=== PATIENT | male | born 1970 | race Caucasian/White ===

== ENCOUNTER 2016-10-29 11:04 | Day surgery (SDC) | payer MEDICAID ==
[~2016-10-29 11:04] MED LIST: Lactated Ringers 1,000 ML IV SCH; Lidocaine 1%/Sod Bicarbonate in NS 8.4% 1 ML Syringe IV PRN; Sodium Chloride 0.9% 10 ML Syringe FLUSH PRN
--- NOTE | 2016-10-29 11:40 | PCM.PREANE ---
Preanesthetic Assessment - Anesthesia/Transfusion/Family Hx Anesthesia History: Prior Anesthesia Without Reaction Family History of Anesthesia Reaction: No Transfusion History: No Prior Transfusion(s) - Review of Systems General: Fever, Weakness, Fatigue, Chills, Night Sweats (going on for 4 years) Pulmonary: Shortness of Breath, Wheezing Cardiovascular: Chest Pain (some days dull and some days sharp pain) Gastrointestinal: Abdominal pain, Decreased appetite, Diarrhea, Hematochezia, Nausea, Vomiting Neurological: Headache Other: Reports: Depression, Anxiety - Physical Assessment NPO Status Date: 10/28/16 NPO Status Time: 21:30 Pulse: 78 O2 Sat by Pulse Oximetry: 98 Respiratory Rate: 20 Blood Pressure: 129/87 Temperature: 98.3 F Height: 5 ft 10 in Weight: 143 kg ASA Class: 3 Mental Status: Alert & Oriented x3 Airway Class: Mallampati = 1 Dentition: Reports: Missing Tooth/Teeth (bottom left tooth very loose) Thyro-Mental Finger Breadths: 3 Mouth Opening Finger Breadths: 3 Lungs: Clear to auscultation Cardiovascular: Regular Rate, Regular Rhythm, No Murmurs - Lab Values: 07/09/16 lytes WNL bun 13 Cr 0.90 hgb 16.7 plt 239 - Imaging/EKG Impressions: Jul 09, 2016 EKG SR rate 72 - Allergies Allergies/Adverse Reactions: Allergies Allergy/AdvReac Type Severity Reaction Status Date / Time No Known Allergies Allergy Verified 10/28/16 17:30 - Blood Blood Available: No - Acknowledgements Anesthesia Type Planned: MAC Pt an Appropriate Candidate for the Planned Anesthesia: Yes Alternatives and Risks of Anesthesia Discussed w Pt/Guardian: Yes Pt/Guardian Understands and Agrees with Anesthesia Plan: Yes PreAnesthesia Questionnaire Cardiovascular History: Reports: None, SOB on exertion Respiratory History: Reports: Asthma, COPD, Other (see below) Other Respiratory History: emphysema, pulmonary nodule Gastrointestinal History: Reports: Hemorrhoids, Other (see below) Other Gastrointestinal History: rectal bleeding, hematochezia, abdominal pain, nausea and vomiting, reflux, tubluar adenoma, anal stenosis, anal fissure, benign neuroendocrine tumor of small intestine, colon polpys Genitourinary History: Reports: None DRAG SAWYER History: Reports: None Musculoskeletal History: Reports: Other (see below) Other Musculoskeletal History: joint pain Neurological History: Reports: None, Headaches, chronic Psychiatric History: Reports: Anxiety, Bipolar Endocrine/Metabolic History: Reports: None Hematologic History: Reports: None Immunologic History: Reports: None Oncologic (Cancer) History: Reports: None Dermatologic History: Reports: None - Past Surgical History Head Surgeries/Procedures: Reports: None HEENT Surgical History: Reports: Oral surgery GI Surgical History: Reports: Colonoscopy, EGD, Hernia, inguinal, Other (see below) Other GI Surgeries/Procedures: colon resection and double balloon endscopy - SUBSTANCE USE Smoking Status *Q: Current Every Day Smoker (3 cigs every 3 days- smoked for 37 years) Tobacco Use Within Last Twelve Months: Cigarettes Second Hand Smoke Exposure: Yes Days Per Week of Alcohol Use: 0 Recreational Drug Use History: No - HOME MEDS Home Medications: Home Meds Albuterol Sulfate [Proair Hfa] 1 puff INH Q4HR PRN 10/28/16 [History] Amitriptyline [Elavil] 25 mg PO BID 10/28/16 [History] Baclofen 10 mg PO TID 10/28/16 [History] Budesonide/Formoterol [Symbicort 160-4.5 MCG] 2 puff INH BID 10/28/16 [History] Cyclobenzaprine [Flexeril] 10 mg PO TID PRN 10/28/16 [History] Dicyclomine [Bentyl] 20 mg PO QID 10/28/16 [History] Dronabinol [Dronabinol] 2.5 mg PO BID 10/28/16 [History] HYDROmorphone [Dilaudid] 2 mg PO Q4H PRN 10/28/16 [History] Ondansetron HCl [Zofran] 8 mg PO Q8H PRN 10/28/16 [History] Pregabalin [Lyrica] 75 mg PO BID 10/28/16 [History] Tiotropium [Spiriva Handihaler] 1 puff INH DAILY 10/28/16 [History] buPROPion [Wellbutrin SR] 150 mg PO BID 10/28/16 [History] busPIRone [Buspar] 10 mg PO TID 10/28/16 [History] carBAMazepine [Tegretol] 600 mg PO BEDTIME 10/28/16 [History] hydrOXYzine Pamoate [Hydroxyzine Pamoate] 25 mg PO BEDTIME 10/28/16 [History] hydrOXYzine Pamoate [Hydroxyzine Pamoate] 50 mg PO BEDTIME 10/28/16 [History] - CURRENT (IN HOUSE) MEDS Current Meds: Current Medications Lactated Ringer's (Ringers, Lactated) 1,000 mls @ 125 mls/hr IV ASDIRECTED ILAN Stop: 10/29/16 23:00 Lidocaine/Sodium Bicarbonate (Buffered Lidocaine 1% In Ns 8.4%) 0.25 ml IV ONETIME PRN PRN Reason: Prior to IV Start Stop: 10/29/16 18:00 Sodium Chloride (Saline Flush) 10 ml FLUSH ASDIRECTED PRN PRN Reason: Keep Vein Open Stop: 10/29/16 18:00
[2016-10-29] MEDS ORDERED: Propofol 200 MG/20 ML SDV ONE ×3 (12:12→13:10)
[2016-10-29] MEDS ORDERED: fentaNYL 100 MCG/2 ML SDV ONE (12:13)
[2016-10-29] MEDS ORDERED: Lidocaine 1% 4 ML ONE (12:13)
[2016-10-29 13:22] VITALS: BP 105/74
--- NOTE | 2016-10-29 13:22 | PCM48HPAN ---
Post Anesthesia Note - EVALUATION WITHIN 48HRS OF ANESTHETIC Vital Signs in Normal Range: Yes Patient Participated in Evaluation: Yes Respiratory Function Stable: Yes Airway Patent: Yes Cardiovascular Function Stable: Yes Hydration Status Stable: Yes Pain Control Satisfactory: Yes Nausea and Vomiting Control Satisfactory: Yes Mental Status Recovered: Yes
--- NOTE | 2016-10-29 13:26 | PCM.OPNOTE ---
- General Post-Op/Procedure Note Date of Surgery/Procedure: 10/29/16 Operative Procedure(s): Diagnostic EGD with cold forceps biopsy. Diagnostic colonoscopy with cold forceps biopsy. Hemorrhoidal banding Pre Op Diagnosis: Constipation intermittent diarrhea, history of carcinoid small bowel tumor, chronic abdominal pain Post-Op Diagnosis: Colitis of uncertain etiology, worst in the rectum, poor prep , mild gastritis and duodenitis, mild esophagitis, arytenoid nodule, grade 2 internal hemorrhoids Anesthesia Technique: MAC Primary Surgeon: Toyin Kwon Anesthesia Provider: Vicente Phillips Pathology: 1. Small bowel biopsy 2. Antral biopsy 3. Distal esophageal biopsy 4. Random colon biopsies from the descending colon to the rectum EBL in mLs: 1 Complications: None Condition: Good Free Text/Narrative:: FLUIDS: 850 mL crystalloid. 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 Kleber Hassan for evaluation for internal hemorrhoids and other GI complaints. After further discussion with the patient, with his extensive history of numerous complaints, we discussed performing a diagnostic colonoscopy and EGD and the associated risks of the procedures had been discussed with the patient. He had a preprocedural CAT scan of the abdomen and pelvis which was unremarkable. The patient found these risks acceptable and agreed to proceed. DESCRIPTION OF PROCEDURE: The patient was taken to the operating room and placed in the left lateral decubitus position. After induction of adequate sedation, a bite block was placed. A standard Olympus gastroscope was inserted into the oropharynx and guided down the esophagus without difficulty. The gastroesophageal junction was appreciated at 40 cm from the teeth. There was an arytenoid nodule present. There was no evidence of stricture or esophageal ulcerations. The scope was advanced into the stomach, and there was mild diffuse gastritis. The scope was passed into the proximal jejunum and the duodenum which showed mild duodenitis of D1 and D2, and there were a few scattered petechia. There were no ulcerations. The proximal jejunum was grossly normal in appearance. Multiple cold forceps biopsies were obtained of the proximal jejunum and duodenum. The scope was withdrawn into the antrum, and additional cold forceps biopsies were obtained. The remainder of the gastric body was examined, and there were no additional abnormalities. The scope was retroflexed, and there was no evidence of hiatal hernia. The scope was straightened and withdrawn to the GE junction. Additional cold forceps biopsies were obtained of the distal esophagus. There was very slight irregularity of the Z line consistent with mild esophagitis. The scope was withdrawn through the remainder of the esophagus and no further abnormalities were noted. The posterior oropharynx was grossly normal in appearance. The scope was fully withdrawn and attention was then turned to the colonoscopy. A digital rectal exam was performed which was unremarkable. The prostate was nonnodular. An inflamed internal hemorrhoid was visible with very slight prolapse. This was easily manually reduced. An adult Olympus colonoscope was inserted into the rectum and guided under direct visualization to the appendiceal orifice and ileocecal valve. The colon was tortuous about the splenic flexure, it was unclear to me exactly why as there was no obvious looping. I questioned intra-abdominal adhesions from previous surgery. The patient was placed supine and counterpressure was utilized to facilitate passage of scope. The scope was then slowly withdrawn through the colon. The quality of the prep was fair, there was liquid stool with chunks of vegetable matter present. The vegetable matter did limit the views of the colonic mucosa. There was no evidence of angiodysplasias, diverticulum or large mass lesions. There was evidence of patchy mild colitis beginning in the descending colon and worsening, until reaching the rectum where the colitis was its worst. There was no ulceration or zhao bleeding, but some contact bleeding in the rectum especially. Multiple cold forceps biopsies were obtained of the areas of colitis. The scope was withdrawn into the rectum and retroflexed. Grade 2 internal hemorrhoids were present. All 3 columns of hemorrhoids were banded using the sure shot device. The scope was straightened, the colon was desufflated, and the scope was withdrawn. The patient was awakened from sedation and transferred to the recovery room in stable condition having tolerated the procedure well. POSTOPERATIVE PLAN: I discussed with the patient's significant other my intraoperative findings and recommendations. The patient will follow up in approximately 7-10 days to discuss pathology and how their symptoms are progressing. The patient is to start Anucort HC suppositories twice daily until he returns to the clinic. Hemorrhoidal banding instructions have been provided. Will also have the patient start Zantac daily. I have asked the patient to follow a GERD\gastritis diet. The patient is to call with any worsening of symptoms or questions prior to the appointment. The patient also has pending referral to Gastroenterology in early November and another referral to [facility] or [facility] for his chronic abdominal pain. ENT referral placed for arytenoid nodule.
== END 2016-10-29 14:05 | disposition home or self-care (01) ==
LOC: JD.SDS 11:04
PROVIDERS: ATTEND Surgery
PROC: 0DB98ZX Excision of Duodenum, Via Natural or Artificial Opening Endoscopic, Diagnostic (ICD-10-PCS; principal; 2016-10-29)
PROC: 0DB38ZX Excision of Lower Esophagus, Via Natural or Artificial Opening Endoscopic, Diagnostic (ICD-10-PCS; 2016-10-29)
PROC: 0DB68ZX Excision of Stomach, Via Natural or Artificial Opening Endoscopic, Diagnostic (ICD-10-PCS; 2016-10-29)
PROC: 0DBA8ZX Excision of Jejunum, Via Natural or Artificial Opening Endoscopic, Diagnostic (ICD-10-PCS; 2016-10-29)
PROC: 0DBE8ZX Excision of Large Intestine, Via Natural or Artificial Opening Endoscopic, Diagnostic (ICD-10-PCS; 2016-10-29)
PROC: 06LY4CC Occlusion of Hemorrhoidal Plexus with Extraluminal Device, Percutaneous Endoscopic Approach (ICD-10-PCS; 2016-10-29)
DX: K21.0 Gastro-esophageal reflux disease with esophagitis (principal); K29.50 Unspecified chronic gastritis without bleeding; K29.80 Duodenitis without bleeding; K52.9 Noninfective gastroenteritis and colitis, unspecified; K64.1 Second degree hemorrhoids; J44.9 Chronic obstructive pulmonary disease, unspecified; J45.909 Unspecified asthma, uncomplicated; F41.1 Generalized anxiety disorder; F31.9 Bipolar disorder, unspecified; F17.210 Nicotine dependence, cigarettes, uncomplicated; Z86.010 Personal history of colon polyps; Z90.49 Acquired absence of other specified parts of digestive tract; Z98.890 Other specified postprocedural states; Z79.899 Other long term (current) drug therapy; Z79.51 Long term (current) use of inhaled steroids
CPT/HCPCS: 43239; 45380; 45398; 88305; J3010; J7120; 00902; J2704

== ENCOUNTER 2022-10-08 10:04 | Day surgery (SDC) | payer MEDICARE, MEDICAID ==
[~2022-10-08 10:04] MED LIST changes: +Lidocaine 1%/Sod Bicarbonate in NS 8.4% 1 ML Syringe IDERM PRN; -Lidocaine 1%/Sod Bicarbonate in NS 8.4% 1 ML Syringe IV PRN; +Sodium Chloride 0.9% 10 ML Syringe FLUSH SCH
[2022-10-08] MEDS ORDERED: Propofol 200 MG/20 ML SDV ONE (12:17)
[2022-10-08] MEDS ORDERED: Midazolam 1 MG/ML 2 ML SDV ONE (12:17)
[2022-10-08] MEDS ORDERED: fentaNYL 100 MCG/2 ML SDV ONE (12:17)
[2022-10-08] MEDS ORDERED: Lidocaine 1% 2 ML ONE (12:17)
[2022-10-08] MEDS ORDERED: Bupivacaine 0.5% 30 ML SDV ONE (13:30)
[2022-10-08 14:26] VITALS: BP 118/72; PULSE 72
== END 2022-10-08 14:20 | disposition home or self-care (01) ==
LOC: JD.SDS 10:04
PROVIDERS: ATTEND Surgery
DX: K63.5 Polyp of colon (principal); K64.8 Other hemorrhoids; K64.4 Residual hemorrhoidal skin tags; Q43.8 Other specified congenital malformations of intestine; Z53.09 Procedure and treatment not carried out because of other contraindication; J44.9 Chronic obstructive pulmonary disease, unspecified; F41.1 Generalized anxiety disorder; K21.9 Gastro-esophageal reflux disease without esophagitis; F17.210 Nicotine dependence, cigarettes, uncomplicated; Z79.899 Other long term (current) drug therapy; Z91.030 Bee allergy status
CPT/HCPCS: 45331; 46221; J2250; J2704; J3010; J3490; J7120